=== PATIENT | female | born 1935 | race Caucasian/White ===

== ENCOUNTER 2016-10-03 10:13 | Day surgery (SDC) | payer OTHER, BC ==
[2016-10-03] MEDS ORDERED: ACETAMINOPHEN 325 MG TABLET (FP) PO ONE (10:30)
[2016-10-03] MEDS ORDERED: ZOLEDRONIC ACID/MAN/WATER 100 ML IVPB ONE (11:00)
[2016-10-03 11:41] VITALS: BP 123/73; PULSE 84; TEMP 97.7
== END 2016-10-03 11:50 | disposition home or self-care (01) ==
LOC: JCHEMO 11:50 → JASU-ENDO 10-09 11:25
PROVIDERS: ATTEND Internal Medicine Endocrinology, Diabetes & Metabolism
PROC: 3E033GC Introduction of Other Therapeutic Substance into Peripheral Vein, Percutaneous Approach (ICD-10-PCS; principal; 2016-10-03)
DX: M81.0 Age-related osteoporosis without current pathological fracture (principal)
CPT/HCPCS: 96365; J3489

== ENCOUNTER 2017-11-16 08:54 | Day surgery (SDC) | payer OTHER, BC ==
[2017-11-16] MEDS ORDERED: ZOLEDRONIC ACID/MAN/WATER 5 MG/100 ML INFUS..BTL IVPB ONE (09:00)
[2017-11-16] MEDS ORDERED: ACETAMINOPHEN 325 MG TABLET (FP) ONE (09:13)
[2017-11-16 11:34] VITALS: BP 105/64; PULSE 89; TEMP 98.3
== END 2017-11-16 10:30 | disposition home or self-care (01) ==
LOC: JCHEMO 08:54
PROVIDERS: ATTEND Internal Medicine Endocrinology, Diabetes & Metabolism
PROC: 3E033GC Introduction of Other Therapeutic Substance into Peripheral Vein, Percutaneous Approach (ICD-10-PCS; principal; 2017-11-16)
DX: M81.0 Age-related osteoporosis without current pathological fracture (principal)
CPT/HCPCS: 96365; J3489

== ENCOUNTER 2018-12-06 08:43 | Day surgery (SDC) | payer OTHER, BC ==
[2018-12-06] MEDS ORDERED: ACETAMINOPHEN 325 MG TABLET (FP) PO ONE (09:15)
[2018-12-06] MEDS ORDERED: ZOLEDRONIC ACID/MAN/WATER 5 MG/100 ML INFUS..BTL IVPB ONE (09:30)
[2018-12-06 12:44] VITALS: BP 133/66; PULSE 76; TEMP 98.2
== END 2018-12-06 10:35 | disposition home or self-care (01) ==
LOC: JCHEMO 08:43
PROVIDERS: ATTEND Internal Medicine Endocrinology, Diabetes & Metabolism
PROC: 3E033GC Introduction of Other Therapeutic Substance into Peripheral Vein, Percutaneous Approach (ICD-10-PCS; principal; 2018-12-06)
DX: M81.0 Age-related osteoporosis without current pathological fracture (principal)
CPT/HCPCS: 96365; J3489

== ENCOUNTER 2022-06-17 11:33 | Emergency (ER) | payer OTHER, BC ==
[2022-06-17 11:53] VITALS: BMI 34.5
[2022-06-17 12:31] LABS: BASO % 0.5 % (0-2.0); EOS % 2.7 % (0-4.5); HEMATOCRIT 39.5 % (32.4-45.2); HEMOGLOBIN 13.2 GM/dL (10.7-15.3); LYMPH % 12.4 % (8-40); MCH 29.3 pg (25.7-33.7); MCHC 33.4 g/dl (32.0-36.0); MEAN CELL VOLUME 87.7 fl (80-96); MEAN PLT VOLUME 7.6 fl (7.5-11.1); MONO % 7.1 % (3.8-10.2); NEUT % 77.3 % (42.8-82.8); PLATELET COUNT 317 10^3/uL (134-434); RDW 15.9 % (11.6-15.6); WHITE BLOOD COUNT 11.2 K/mm3 (4.0-10.0)
[2022-06-17 12:37] LABS: INR 2.82 (0.83-1.09); PROTHROMBIN TIME (PATIENT) 32.4 SEC (9.7-13.0)
[2022-06-17 12:40] LABS: ACTIVATED PTT 39.5 SECONDS (25.2-36.5)
[2022-06-17 12:55] LABS: ALBUMIN 3.2 g/dl (3.4-5.0); BLOOD UREA NITROGEN 20.6 mg/dL (7-18); CALCIUM 8.9 mg/dL (8.5-10.1)
[2022-06-17 12:58] LABS: CREATININE 0.7 mg/dL (0.55-1.3)
[2022-06-17 13:00] LABS: BILIRUBIN,TOTAL 0.3 mg/dL (0.2-1); TOT PROT 7.2 g/dl (6.4-8.2)
[2022-06-17] MEDS ORDERED: ACETAMINOPHEN 1000 MG/100 ML BAG IVPB ONE (13:56)
[2022-06-17] MEDS ORDERED: ACETAMINOPHEN INJECTION 100 ML IVPB ONE (14:14)
[2022-06-17 14:32] VITALS: RESP 21
[2022-06-17 15:05] LABS: EPI CELLS 4 /uL (0-25.1); HYALINE CASTS 0 /uL (0-3.1); PH,URINE 5.5 (5.0-8.0); URINE APPEARANCE CLOUDY; URINE BACTERIA >9,000 /uL (0-1359); URINE BILIRUBIN NEGATIVE (NEGATIVE); URINE COLOR YELLOW; URINE GLUCOSE (UA) NEGATIVE (NEGATIVE); URINE KETONE NEGATIVE (NEGATIVE); URINE LEUK ESTERASE 3+ (NEGATIVE); URINE NITRITE NEGATIVE (NEGATIVE); URINE PROTEIN 1+ (NEGATIVE); URINE UROBILINOGEN 0.2 mg/dL (0.2-1.0); URINE WBC 1770 /uL (0-25.8)
[2022-06-17] MEDS ORDERED: CEFTRIAXONE 1,000 MG in DEXTROSE 5%-WATER - 50 ML IVPB ONE (15:10)
[2022-06-17] MEDS ORDERED: CEFTRIAXONE 1 GM/50 ML BAG ONE (15:18)
[2022-06-17 15:34] LABS: URINE RBC 75.1 /uL (0-23.9); YEAST NEGATIVE (NEGATIVE)
[2022-06-17 17:10] VITALS: BP 115/53; PULSE 71; TEMP 99.1
== END 2022-06-17 19:02 ==
LOC: JER 11:33
PROC: 3E033GC Introduction of Other Therapeutic Substance into Peripheral Vein, Percutaneous Approach (ICD-10-PCS; principal; 2022-06-17)
DX: S09.90XA Unspecified injury of head, initial encounter (principal); S50.312A Abrasion of left elbow, initial encounter; N39.0 Urinary tract infection, site not specified; W19.XXXA Unspecified fall, initial encounter
CPT/HCPCS: 0241U-QW; 36415; 70450-TC; 71045-TC-FY; 72125-TC; 72170-TC-FY; 73562-TC-RT-FY; 80053; 81003; 82550; 84484; 85025; 85610; 85730; 86850; 86900; 86901; 87086; 87186; 93005; 93010; 96365; 96375; 99285-25

== ENCOUNTER 2023-04-17 05:15 | Inpatient (IN) | payer OTHER, BC ==
[2023-04-17] MEDS ORDERED: ACETAMINOPHEN 1000 MG/100 ML BAG IVPB ONE (06:38)
[2023-04-17] MEDS ORDERED: ACETAMINOPHEN INJECTION 100 ML IVPB ONE (06:38)
[2023-04-17 07:01] LABS: HEMATOCRIT 40.5 % (32.4-45.2); HEMOGLOBIN 13.4 GM/dL (10.7-15.3); MCH 30.5 pg (25.7-33.7); MCHC 33.2 g/dl (32.0-36.0); MEAN CELL VOLUME 91.9 fl (80-96); MEAN PLT VOLUME 9.1 fl (7.5-11.1); PLATELET COUNT 314 10^3/uL (134-434); RBC 4.41 M/mm3 (3.60-5.2); RDW 15.9 % (11.6-15.6); WHITE BLOOD COUNT 8.2 K/mm3 (4.0-10.0)
[2023-04-17 07:04] LABS: INR 3.03 (0.83-1.09); PROTHROMBIN TIME (PATIENT) 34.8 SEC (9.7-13.0)
[2023-04-17] MEDS ORDERED: ALBUTEROL SO4 0.083% IH SOL 2.5 MG/3 ML VIAL.NEB. NEB ONE ×2 (07:16→07:19)
[2023-04-17 07:36] LABS: POTASSIUM 4.3 mmol/L (3.5-5.1)
[2023-04-17 07:38] LABS: CALCIUM 8.7 mg/dL (8.5-10.1)
[2023-04-17 07:39] LABS: ALBUMIN 3.1 g/dl (3.4-5.0)
[2023-04-17 07:42] LABS: CREATININE 0.9 mg/dL (0.55-1.3)
[2023-04-17 07:44] LABS: TOT PROT 7.3 g/dl (6.4-8.2)
[2023-04-17 08:31] LABS: URINE APPEARANCE CLEAR; URINE BILIRUBIN NEGATIVE (NEGATIVE); URINE COLOR YELLOW; URINE GLUCOSE (UA) NEGATIVE (NEGATIVE); URINE KETONE NEGATIVE (NEGATIVE)
[2023-04-17 08:32] LABS: BILIRUBIN,TOTAL 0.2 mg/dL (0.2-1)
[2023-04-17 08:34] LABS: URINE LEUK ESTERASE 2+ (NEGATIVE); URINE NITRITE POSITIVE (NEGATIVE); URINE PROTEIN 1+ (NEGATIVE); URINE UROBILINOGEN 0.2 mg/dL (0.2-1.0)
[2023-04-17 08:35] LABS: EPI CELLS 168 /uL (0-25.1); HYALINE CASTS 516 /uL (0-3.1); URINE BACTERIA 2098 /uL (0-1359); URINE RBC 2 /uL (0-23.9); URINE WBC 87.8 /uL (0-25.8)
[2023-04-17 09:19] LABS: ANISOCYTOSIS 0; MACROCYTOSIS 0
[2023-04-17] MEDS ORDERED: ALBUTEROL SO4 2.5/IPRATROPIUM 0.5 INH SOL 3 ML VIAL.NEB. NEB ONE (11:45)
[2023-04-17] MEDS ORDERED: ACETAMINOPHEN 325 MG TABLET (FP) PO PRN (13:00)
[2023-04-17 13:57] LABS: POTASSIUM 3.9 mmol/L (3.5-5.1)
[2023-04-17 15:53] VITALS: BMI 33.7
[2023-04-17] MEDS: CEFTRIAXONE 1 GM in DEXTROSE 5%-WATER - 50 ML IVPB SCH (17:18)
[2023-04-17] MEDS: predniSONE 20 MG TABLET (UD) PO SCH (17:19)
[2023-04-17] MEDS: ALBUTEROL SO4 2.5/IPRATROPIUM 0.5 INH SOL 3 ML VIAL.NEB. NEB SCH ×2 (17:19→22:20)
[2023-04-17] MEDS ORDERED: WARFARIN NA 2.5 MG, WARFARIN NA 1 MG PO SCH (18:00)
[2023-04-17] MEDS ORDERED: WARFARIN NA 3 MG TABLET PO SCH (22:00)
[2023-04-17] MEDS: LATANOPROST 0.005% OPHTH SOLN 2.5ML BOTTLE OU SCH (22:21)
[2023-04-18] MEDS ORDERED: guaiFENesin/D-METHORPHAN HB 10 ML UNIT-DOSE CUPS PO PRN (07:09)
[2023-04-18 08:29] LABS: PROTHROMBIN TIME (PATIENT) 56.9 SEC (9.7-13.0)
[2023-04-18 08:33] LABS: INR 4.98 (0.83-1.09)
[2023-04-18] MEDS: ALBUTEROL SO4 2.5/IPRATROPIUM 0.5 INH SOL 3 ML VIAL.NEB. NEB SCH ×4 (08:34→20:36)
[2023-04-18 08:56] LABS: HEMATOCRIT 40.2 % (32.4-45.2); HEMOGLOBIN 13.2 G/dL (10.7-15.3); MCH 30.4 pg (25.7-33.7); MCHC 32.9 g/dl (32.0-36.0); MEAN CELL VOLUME 92.4 fl (80-96); MEAN PLT VOLUME 8.8 fl (7.5-11.1); PLATELET COUNT 291.9 10^3/uL (134-434); RBC 4.35 10^6/uL (3.60-5.2); RDW 15.5 % (11.6-15.6); WHITE BLOOD COUNT 6.8 10^3/uL (4.0-10.8)
[2023-04-18 09:03] LABS: ALBUMIN 3.5 g/dl (3.4-5.0); BILIRUBIN,TOTAL 0.3 mg/dl (0.2-1); CALCIUM 8.9 mg/dl (8.5-10.1); CREATININE 0.8 mg/dl (0.6-1.3); POTASSIUM 4.5 mmol/L (3.5-5.1); TOT PROT 6.9 g/dl (6.4-8.2)
[2023-04-18] MEDS: GABAPENTIN 300 MG CAPSULE PO SCH (10:49)
[2023-04-18] MEDS: predniSONE 20 MG TABLET (UD) PO SCH (10:49)
[2023-04-18] MEDS: CEFTRIAXONE 1 GM in DEXTROSE 5%-WATER - 50 ML IVPB SCH (10:49)
[2023-04-18] MEDS: LIDOCAINE 5% TOPICAL PATCH TP SCH (10:49)
[2023-04-18] MEDS: PANTOPRAZOLE 20 MG TABLET PO SCH (10:50)
[2023-04-18] MEDS: ASCORBIC ACID 500 MG TABLET (FP) PO SCH (10:50)
[2023-04-18] MEDS: LATANOPROST 0.005% OPHTH SOLN 2.5ML BOTTLE OU SCH (21:06)
[2023-04-18] MEDS: LIDOCAINE PATCH REMOVAL MC SCH (21:07)
[2023-04-19] MEDS: ALBUTEROL SO4 2.5/IPRATROPIUM 0.5 INH SOL 3 ML VIAL.NEB. NEB SCH ×4 (08:18→21:17)
[2023-04-19 08:31] LABS: PROTHROMBIN TIME (PATIENT) 85.5 SEC (9.7-13.0)
[2023-04-19 08:32] LABS: INR 7.52 (0.83-1.09)
[2023-04-19 08:41] LABS: HEMATOCRIT 42.8 % (32.4-45.2); HEMOGLOBIN 13.8 G/dL (10.7-15.3); MCH 29.9 pg (25.7-33.7); MCHC 32.3 g/dl (32.0-36.0); MEAN CELL VOLUME 92.7 fl (80-96); MEAN PLT VOLUME 9.1 fl (7.5-11.1); PLATELET COUNT 322.4 10^3/uL (134-434); RBC 4.62 10^6/uL (3.60-5.2); RDW 15.6 % (11.6-15.6); WHITE BLOOD COUNT 8.6 10^3/uL (4.0-10.8)
[2023-04-19 08:59] LABS: ALBUMIN 3.6 g/dl (3.4-5.0); BILIRUBIN,TOTAL 0.4 mg/dl (0.2-1); CALCIUM 9.3 mg/dl (8.5-10.1); CREATININE 0.8 mg/dl (0.6-1.3); MAGNESIUM 2.1 mg/dL (1.8-2.4); PHOSPHOROUS 3.1 (2.5-4.9); POTASSIUM 4.2 mmol/L (3.5-5.1)
[2023-04-19] MEDS: predniSONE 20 MG TABLET (UD) PO SCH (09:48)
[2023-04-19] MEDS: CEFTRIAXONE 1 GM in DEXTROSE 5%-WATER - 50 ML IVPB SCH (09:48)
[2023-04-19] MEDS: LIDOCAINE 5% TOPICAL PATCH TP SCH (09:48)
[2023-04-19] MEDS: GABAPENTIN 300 MG CAPSULE PO SCH (09:48)
[2023-04-19] MEDS: ASCORBIC ACID 500 MG TABLET (FP) PO SCH (09:48)
[2023-04-19] MEDS: PANTOPRAZOLE 20 MG TABLET PO SCH (09:48)
[2023-04-19] MEDS ORDERED: PHYTONADIONE 5 MG TABLET PO ONE (11:30)
[2023-04-19] MEDS: LATANOPROST 0.005% OPHTH SOLN 2.5ML BOTTLE OU SCH (21:17)
[2023-04-19] MEDS: LIDOCAINE PATCH REMOVAL MC SCH (21:18)
[2023-04-20] MEDS: ALBUTEROL SO4 2.5/IPRATROPIUM 0.5 INH SOL 3 ML VIAL.NEB. NEB SCH ×4 (07:33→21:06)
[2023-04-20] MEDS: predniSONE 20 MG TABLET (UD) PO SCH (09:59)
[2023-04-20] MEDS: LIDOCAINE 5% TOPICAL PATCH TP SCH (09:59)
[2023-04-20] MEDS: CEFTRIAXONE 1 GM in DEXTROSE 5%-WATER - 50 ML IVPB SCH (09:59)
[2023-04-20] MEDS: ASCORBIC ACID 500 MG TABLET (FP) PO SCH (09:59)
[2023-04-20] MEDS: PANTOPRAZOLE 20 MG TABLET PO SCH (09:59)
[2023-04-20] MEDS: GABAPENTIN 300 MG CAPSULE PO SCH (09:59)
[2023-04-20] MEDS ORDERED: WARFARIN NA 1 MG TABLET PO ONE (18:00)
[2023-04-20] MEDS: LIDOCAINE PATCH REMOVAL MC SCH (21:07)
[2023-04-20] MEDS: LATANOPROST 0.005% OPHTH SOLN 2.5ML BOTTLE OU SCH (21:07)
[2023-04-21 08:31] LABS: INR 1.33 (0.83-1.09); PROTHROMBIN TIME (PATIENT) 15.4 SEC (9.7-13.0)
[2023-04-21 08:40] LABS: HEMATOCRIT 42.7 % (32.4-45.2); HEMOGLOBIN 13.7 G/dL (10.7-15.3); MCH 29.9 pg (25.7-33.7); MCHC 32.1 g/dl (32.0-36.0); MEAN CELL VOLUME 93.3 fl (80-96); MEAN PLT VOLUME 9.4 fl (7.5-11.1); PLATELET COUNT 295.5 10^3/uL (134-434); RBC 4.58 10^6/uL (3.60-5.2); RDW 15.5 % (11.6-15.6); WHITE BLOOD COUNT 7.4 10^3/uL (4.0-10.8)
[2023-04-21] MEDS: ALBUTEROL SO4 2.5/IPRATROPIUM 0.5 INH SOL 3 ML VIAL.NEB. NEB SCH ×4 (08:54→21:25)
[2023-04-21] MEDS: LIDOCAINE 5% TOPICAL PATCH TP SCH (09:39)
[2023-04-21] MEDS: CEFTRIAXONE 1 GM in DEXTROSE 5%-WATER - 50 ML IVPB SCH (09:40)
[2023-04-21] MEDS: GABAPENTIN 300 MG CAPSULE PO SCH (09:41)
[2023-04-21] MEDS: ASCORBIC ACID 500 MG TABLET (FP) PO SCH (09:41)
[2023-04-21] MEDS: predniSONE 20 MG TABLET (UD) PO SCH (09:41)
[2023-04-21] MEDS: PANTOPRAZOLE 20 MG TABLET PO SCH (09:41)
[2023-04-21 09:57] LABS: CALCIUM 9.3 mg/dl (8.5-10.1); CREATININE 0.8 mg/dl (0.6-1.3); POTASSIUM 4.2 mmol/L (3.5-5.1)
[2023-04-21] MEDS: WARFARIN NA 2.5 MG, WARFARIN NA 1 MG PO SCH (17:30)
[2023-04-21] MEDS ORDERED: WARFARIN NA 3 MG TABLET PO SCH (18:00)
[2023-04-21] MEDS: LATANOPROST 0.005% OPHTH SOLN 2.5ML BOTTLE OU SCH (21:26)
[2023-04-21] MEDS: LIDOCAINE PATCH REMOVAL MC SCH (22:05)
[2023-04-22] MEDS: ALBUTEROL SO4 2.5/IPRATROPIUM 0.5 INH SOL 3 ML VIAL.NEB. NEB SCH ×4 (09:03→20:20)
[2023-04-22] MEDS: LIDOCAINE 5% TOPICAL PATCH TP SCH (09:03)
[2023-04-22] MEDS: GABAPENTIN 300 MG CAPSULE PO SCH (09:04)
[2023-04-22] MEDS: PANTOPRAZOLE 20 MG TABLET PO SCH (09:04)
[2023-04-22] MEDS: ASCORBIC ACID 500 MG TABLET (FP) PO SCH (09:04)
[2023-04-22] MEDS: predniSONE 20 MG TABLET (UD) PO SCH (09:04)
[2023-04-22 10:33] VITALS: RESP 18; TEMP 97.6
[2023-04-22] MEDS ORDERED: guaiFENesin/D-METHORPHAN HB 10 ML UNIT-DOSE CUPS PO PRN (11:40)
[2023-04-22 14:43] VITALS: BP 143/79; PULSE 89
[2023-04-22] MEDS: WARFARIN NA 2.5 MG, WARFARIN NA 1 MG PO SCH (18:25)
== END 2023-04-22 20:05 | DRG 194 ==
LOC: FER 05:15 → FM/S 09:58 → UNDOADMIN 09:58 → FM/S 11:07
PROVIDERS: ADMIT Internal Medicine
DX: J12.1 Respiratory syncytial virus pneumonia (principal); N39.0 Urinary tract infection, site not specified; I10 Essential (primary) hypertension; E78.5 Hyperlipidemia, unspecified; K21.9 Gastro-esophageal reflux disease without esophagitis; F03.90 Unspecified dementia, unspecified severity, without behavioral disturbance, psychotic disturbance, mood disturbance, and anxiety; B33.8 Other specified viral diseases; I48.91 Unspecified atrial fibrillation; M54.50 Low back pain, unspecified; B96.20 Unspecified Escherichia coli [E. coli] as the cause of diseases classified elsewhere
CPT/HCPCS: 0241U-QW; 36415; 71045-TC-FY; 80048; 80053; 81003; 83605; 83735; 84100; 84132; 84484; 85027; 85610; 87040; 87086; 87186; 93005; 94640; 97116-GP; 97162-GP; 99285-25